=== PATIENT | male | born 1995 | race Caucasian/White ===

== ENCOUNTER 2021-02-02 23:20 | Emergency (ER) | payer BC, MEDICAID, SELFPAY ==
[2021-02-02 23:23] VITALS: BP 109/87; PULSE 100; RESP 18; TEMP 36.8; O2SAT 97; BMI 32.0
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
[2021-02-02] MEDS: tetanus-dipt-pertussis 0.5 mL SDV IM (23:35)
[2021-02-03 00:41] VITALS: BP 117/86; PULSE 78; RESP 18; O2SAT 99
--- NOTE | 2021-02-03 11:25 | DCPLANNER ---
manager medical affairs had message to schedule a follow up appointment for patient with ortho. manager medical affairs called the ortho clinic, spoke with Marga, gave clinic patients information. manager medical affairs was told that patients information would be printed and reviewed. Clinic will call patient with appointment information.
--- NOTE | 2021-02-04 10:37 | DCPLANNER ---
Patient has a follow up appointment scheduled for Thursday, February 11, [address] at 9:[address] Sandhu. Clinic will call patient with appointment information.
--- NOTE | 2021-03-04 14:40 | DCPLANNER ---
Patient had a follow up appointment scheduled with ortho - appointment was cancelled.
== END 2021-02-03 00:41 | disposition home or self-care (01) ==
PROVIDERS: Emergency Provider Emergency Medicine
DX: S93.402A Sprain of unspecified ligament of left ankle, initial encounter (principal); V89.2XXA Person injured in unspecified motor-vehicle accident, traffic, initial encounter; Z23 Encounter for immunization
CPT/HCPCS: 29515; 73562; 73610; 90471; 90715; 99283

== ENCOUNTER → 2023-01-11 17:39 | Outpatient (BNVA) | payer OTHER, SELFPAY | PROVIDERS: Visit Provider Nurse Practitioner Family | DX: R05.9 Cough, unspecified (principal); J02.0 Streptococcal pharyngitis | CPT/HCPCS: 87426 ==

== ENCOUNTER 2023-08-03 10:55 | Emergency (ER) | payer OTHER, MEDICAID, SELFPAY ==
--- NOTE | 2023-08-03 10:55 | ECG_ITS ---
[facility] Test Date: 2023-08-03 Pat Name: Christopher Sandoval Department: Room: Gender: Male Cover Marker: : 1995 Requested By: Giovanna Juarez Order Number: [id number] Jamari MD: Doroteo Leung M.D. Measurements Intervals [place] Rate: 94 P: 0 [place]: 0 QRS: 26 QRSD: 92 T: 30 QT: 319 QTc: 399 Interpretive Statements SINUS RHYTHM No previous ECG available for comparison Electronically Signed On 08-03-2023 13:56:37 CDT by Doroteo Leung M.D. [id number]
[2023-08-03 11:03] VITALS: BP 127/84; PULSE 92; RESP 18; TEMP 36.7; O2SAT 94; BMI 32.3
--- NOTE | 2023-08-03 13:09 | XR_ITS ---
WS: [id number] Exam: XR chest 1V portable [id number] Date/Time of Exam: 08/03/2023 1:09 PM Reason For Exam: chest pain No previous exams. Findings: The lungs are clear and fully expanded. Costophrenic angles are sharp. No infiltrates. Bronchovascula r relief appears normal. Cardiac silhouette is unremarkable. Bony elements are intact. XR/XR chest 1V portable [id number] IMPRESSION: Unremarkable chest radiograph.
--- NOTE | 2023-08-03 14:12 | ED_ITS ---
HPI - Chest Pain General: Chief Complaint: Chest Pain Stated Complaint: Chest Pain Time Seen by Provider: 08/03/23 14:01 Source: patient and family Mode of arrival: ambulatory Limitations: no limitations History of Present Illness: Patient is a very nice 28-year-old male presents to ED today for evaluation following an episode that occurred at home just prior to arrival. Patient states he was sleeping when he awoke from a sleep with severe right anterior chest pain. Patient states he had an intractable urge to cough and states he was coughing up phlegm that had a weird taste . He states he got into the shower where he began feeling nauseous and dizzy. He states entire episode lasted approximately 45 minutes or so. Upon arrival to the emergency department he states he feels much improved. He is not having any shortness of breath or difficulty breathing. He has absolutely no chest pain. He does still feel like he has a weird taste in his mouth . Patient arrives in no acute distress with stable vital signs. He has no known past medical history. Denies hemoptysis. Denies lower extremity swelling or calf pain. MD complaint: chest pain Onset (ago): hour(s) Timing of current episode: now resolved Prior episodes: No Onset: awoke with symptoms Pain location: right chest Pain radiation: none Severity: moderate Quality: sharp Relieving factors: nothing Exacerbating factors: nothing Associated symptoms: Reports nausea and other (dizziness); Deny abdominal pain, dyspnea, fever(s), palpitations, syncope or vomiting Treatment prior to arrival: none Risk Factors: Coronary artery disease risk factors: none Thoracic aortic dissection risk factors: none Review of Systems Const: Denies: fever(s), chills, body aches, fatigue or malaise Eyes: Denies: change in vision, blurry vision, photophobia, floaters or seeing flashes ENMT: Denies: throat pain or odynophagia Card: Reports: chest pain (resolved now); Denies: palpitations, irregular heart rhythm, edema, swelling of feet/ankles, lightheadedness, syncope, pre-syncope, dyspnea on exertion, orthopnea, leg pain with exertion or acrocyanosis Resp: Denies: dyspnea, wheezing, stridor, pain on inspiration or hemoptysis GI: Reports: nausea; Denies: abdominal pain or vomiting Musc: Denies: back pain Neuro: Reports: dizziness (resolved now); Denies: headache(s), numbness in extremities, weakness in extremities or sensory changes PFSH ED PFSH: Medical History Psychiatric care Social History Smoking and tobacco/nicotine status: never used tobacco/nicotine Physical Exam Const: COMMON NORMALS: no acute distress, average body habitus, patient oriented x3, no limitations, healthy appearing, alert and well nourished Neck/C-Spine: COMMON NORMALS: no JVD and No carotid bruits Chest: COMMONS NORMALS: normal inspection of the chest and normal palpation of entire chest wall Resp: COMMON NORMALS: normal respiratory effort and clear to auscultation bilaterally AUSCULTATION: clear to auscultation bilaterally Cardio: COMMON NORMALS: no JVD, regular rate and regular rhythm RATE: regular rate RHYTHM: regular rhythm GI: COMMON NORMALS: Normal to inspection, nondistended, normoactive bowel sounds present, Soft to palpation and non-tender PALPATION: Yes Soft to palpation Extremity: COMMON NORMALS: no clubbing, cyanosis or edema, no calf tenderness and no pedal edema GENERAL: Yes normal exam except as noted Neuro: COMMON NORMALS: patient oriented x3 SENSORIUM/ORIENTATION: Yes alert Course Vital Signs: Vital signs: Vital Signs Temperature 98.1 F 08/03/23 11:03 Pulse Rate 92 08/03/23 11:03 Respiratory Rate 18 08/03/23 11:03 Blood Pressure 127/84 08/03/23 11:03 Pulse Oximetry 94 08/03/23 11:03 Oxygen Delivery Me thod Room Air 08/03/23 11:03 MDM - Chest Pain Medical Decision Making Patient much improved upon arrival to the emergency department. He appears no acute distress with stable vital signs. Patient unfortunately did have a lengthy stay in the waiting room prior to obtaining a room. Was able to get an EKG and CXR from the waiting room. These are both unremarkable. At time of my examination patient is eager to go home. I do not have any suspicion for cardiac etiology. We did discuss possibly obtaining a d-dimer however again patient would like to go home. He was counseled on return precautions which he is agreeable to. Medical Records I reviewed the patient's medical records. Lab Data I reviewed the patient's lab results. Radiology Impressions Chest X-Ray 08/03/23 13:09 IMPRESSION: Unremarkable chest radiograph. All radiology interpretation(s) finalized by discharge Discharge Plan Discharge Patient Disposition: Home Clinical Impression: Non-cardiac chest pain Condition: Stable Prescriptions: No Action amoxicillin-pot clavulanate 400-57 mg/5 mL suspension for reconstitution 10 ml PO BID 7 Days Qty: 140 0RF dexamethasone 6 mg tablet 12 mg PO ONCE Qty: 2 0RF Discharge Orders: Discharge ED (Routine); Ordered 08/03/23 Ordered By: Giovanna Juarez Activity Restrictions/Additional Instructions: As we discussed I would like you to return to the emergency department for any recurrence of severe chest pain, shortness of breath, difficulty breathing, shortness of breath with minimal exertion, severe lightheadedness/passing out episodes, or any other concerns you may have. Otherwise I would like you to follow-up with your primary care provider later this week. Coding Level of Care Code ED Hospitalist Nocturnist Physician for Aurelio Lee
[2023-08-03 14:37] VITALS: BP 132/67; PULSE 85; RESP 17; O2SAT 95
== END 2023-08-03 14:38 | disposition home or self-care (01) ==
PROVIDERS: Emergency Provider Physician Assistant
DX: R07.89 Other chest pain (principal)
CPT/HCPCS: 71045; 93005; 99284